=== PATIENT | female | born 1980 | race Two or more races ===

== ENCOUNTER 2019-12-18 02:36 | Emergency (ER) | payer OTHER ==
[~2019-12-18] VITALS: Ht 154.9 cm; Wt 70.0 kg
[2019-12-18 02:39] VITALS: BP 118/64
[2019-12-18] MEDS ORDERED: ACETAMINOPHEN 325MG TABLET PO ONE (03:30)
== END 2019-12-18 04:54 | disposition home or self-care (01) ==
LOC: ER 02:36
DX: R51 Headache (principal); Z90.49 Acquired absence of other specified parts of digestive tract
CPT/HCPCS: 72040; 99283